=== PATIENT | male | born 1945 | race Caucasian/White ===

== ENCOUNTER 2017-05-28 15:38 | Emergency (ER) | payer MEDICARE, BC ==
[~2017-05-28] VITALS: Ht 182.9 cm; Wt 100.0 kg
[~2017-05-28 15:38] MED LIST: CARD2TAB PO; CEPH500C3 PO; DICL50 PO; HYDR-3533 PO; LIPI80TA16 PO; VIAG50TA PO
[2017-05-28 15:40] VITALS: BP 164/84; PULSE 78; RESP 18; TEMP 99.4; O2SAT 96
--- NOTE | 2017-05-28 15:52 | PD ---
Physical Exam Time Seen by Provider: 15:51 Narrative 72 y/o male with laceration to Left lower leg, slipped in the pool [employer] Vital signs reviewed. Seen at triage desk. Awaiting bed placement. Data Data Last Documented VS Vital Signs Date Time Temp Pulse Resp B/P Pulse Ox O2 Delivery O2 Flow Rate FiO2 05/28/17 15:40 99.4 78 18 164/84 96 Room Air MDM Medical Record Reviewed: Yes Supervised Visit with KLEVER: Rajesh Pierce May 28, 2017 15:52
[2017-05-28] MEDS ORDERED: LIDOCAINE HCL 1% 50 ML VIAL INFIL ONE (17:45)
[2017-05-28] MEDS ORDERED: CEPH-460 PO (18:07)
--- NOTE | 2017-05-28 18:09 | PD ---
HPI Chief Complaint: Skin Problem Time Seen by Provider: 18:06 Travel History International Travel<30 days: No Contact w/Intl Traveler<30days: No Traveled to known affect area: No History of Present Illness HPI 72-year-old male presents to the emergency department complaining of a laceration to his left maddox from today. He slipped on his pool ladder and cut his leg. Denies being up-to-date on his tetanus vaccination and also reports being allergic to the tetanus toxoid. Denies paresthesias, loss of sensation, decreased range of motion, decreased strength to the affected extremity. Has applied pressure to control bleeding. Bandage in place. Has not taken any medications to alleviate his symptoms. Has no other medical complaints. No other modifying factors or associated signs and symptoms. PFSH Past Medical History Cancer: Yes (STAGE 4 LYMPHOMA) Cardiovascular Problems: No High Cholesterol: Yes Chemotherapy: Yes (7 YEARS AGO) Diabetes: No Diminished Hearing: No Genitourinary: Yes (CHRONIC KIDNEY DISEASE; BPH) Hepatitis: No Hiatal Hernia: No Hypertension: Yes Medical other: Yes (BPH) Respiratory: No Thyroid Disease: No Past Surgical History Abdominal Surgery: Yes (PARTIAL SM. INTESTINE RESECTOMY, APPY) Appendectomy: Yes Oral Surgery: Yes (T & A) Pacemaker: No Tonsillectomy: Yes Other Surgery: Yes (lumbar fusion) Social History Alcohol Use: Yes (OCCASIONAL BEER) Tobacco Use: No (quit 17 yrs) Substance Use: No Allergies-Medications (Allergen,Severity, Reaction): Coded Allergies: Cellcept (Unverified Allergy, Severe, RASH, 06/27/16) Penicillin (Verified Allergy, Severe, Rash, 06/27/16) Tetanus Toxoid (Verified Allergy, Severe, Swelling, 06/27/16) Reported Meds & Prescriptions Reported Meds & Active Scripts Active Keflex (Cephalexin) 500 Mg Cap 500 Mg PO Q8H 7 Days Reported Cardura 2 mg (Doxazosin Mesylate) 2 Mg Tab 2 Mg PO HS Lipitor (Atorvastatin Calcium) 80 Mg Tab 40 Mg PO HS Review of Systems Except as stated in HPI: all other systems reviewed are Neg Physical Exam Narrative GENERAL: Well-nourished, well-developed elderly male patient, in no acute distress; afebrile, nontoxic-appearing SKIN: Warm and dry. Left mid maddox with approximately 6 cm laceration: Bleeding controlled; the left lower extremity with 2+ pedal pulses and sensory intact without erythema or edema. HEAD: Atraumatic. Normocephalic. EYES: Pupils equal and round. No scleral icterus. No injection or drainage. ENT: Mucosa pink and moist. Airway patent. NECK: Trachea midline. CARDIOVASCULAR: Regular rate. RESPIRATORY: No accessory muscle use. GASTROINTESTINAL: Rounded. MUSCULOSKELETAL: No obvious deformities. No clubbing. No cyanosis. No edema. NEUROLOGICAL: Awake and alert. Oriented 3. No obvious cranial nerve deficits. Motor grossly within normal limits. Normal speech. PSYCHIATRIC: Appropriate mood and affect; insight and judgment normal. Data Data Last Documented VS Vital Signs Date Time Temp Pulse Resp B/P Pulse Ox O2 Delivery O2 Flow Rate FiO2 05/28/17 15:40 99.4 78 18 164/84 96 Room Air Orders Lidocaine 1% Inj (Xylocaine 1% Inj) (05/28/17 18:15) Lidocaine Pf 1% Inj (Xylocaine-Mpf 1% In (05/28/17 18:14) MDM Medical Decision Making Medical Screen Exam Complete: Yes Emergency Medical Condition: Yes Medical Record Reviewed: Yes Differential Diagnosis Laceration, contusion, abrasion Narrative Course 72-year-old male with laceration to left mid maddox. See my procedure note for laceration repair. Patient is allergic to tetanus toxoid. Keflex prescribed for home. Injected patient to return to the emergency department or follow-up with primary care provider in 14-28 days for staple removal. Instructed patient to follow up with primary care provider. Patient verbalizes understanding and agreement with treatment plan. Patient is medically cleared and stable for discharge. Discussed reasons to return to the emergency department. Patient agrees with treatment plan. The patients vital signs are stable and the patient is stable for outpatient follow-up and treatment. Patient discharged home, stable and in no acute distress. Procedures Procedure Narrative LACERATION LOCATION: Left maddox LENGTH: 6 cm NUMBER OF STITCHES/MARY: 8 [place] REPAIR: The area of the laceration was prepped with Betadine and sterilely draped. The laceration was infiltrated with 1% lidocaine. The wound was copiously irrigated and explored without evidence of foreign body, tendon injury or neurovascular injury. The wound was closed using mary. This was a single layer repair. A sterile dressing was applied. The patient was advised to keep the dressing clean and dry. Patient tolerated the procedure well. Diagnosis Primary Impression: Laceration of left lower leg Qualified Code: S81.812A - Laceration of left lower leg, initial encounter Referrals: Primary Care Physician Patient Instructions: General Instructions, Laceration (ED), Staple Care (ED) Additional Instructions: Keep area clean and dry Limit left lower leg activity to decrease risk of mary coming undone done Tylenol as directed and as needed for pain and inflammation Ice pack to area as needed to decrease pain Return to the emergency department or follow-up with primary care provider in in 14-28 days for staple removal Follow up with primary care provider within 2-4 days Return to the emergency department immediately with worsening of symptoms, particularly if reddened streaks up or down the affected extremity from the staple site, fever, numbness/tingling in the affected extremity, loss of sensation in the affected extremity, severe swelling of the affected Med/Other Pt SpecificInfo: Prescription(s) given Scripts Cephalexin (Keflex)500 Mg [id number] Mg PO Q8H 7 Days Ref 0 Prov:Tracy Burr 05/28/17 Disposition: 01 DISCHARGE HOME Condition: Stable Tracy Burr May 28, 2017 18:09
[2017-05-28] MEDS ORDERED: LIDOCAINE HCL 1% PF 30 ML VIAL ONE (18:14)
[2017-05-28] MEDS ORDERED: LIDOCAINE HCL 1% 30 ML VIAL INFIL ONE (18:15)
== END 2017-05-28 18:51 | disposition home or self-care (01) ==
LOC: NEPK 15:38
DX: S81.812A Laceration without foreign body, left lower leg, initial encounter (principal); E78.00 Pure hypercholesterolemia, unspecified; I12.9 Hypertensive chronic kidney disease with stage 1 through stage 4 chronic kidney disease, or unspecified chronic kidney disease; N18.9 Chronic kidney disease, unspecified; N40.0 Benign prostatic hyperplasia without lower urinary tract symptoms; W45.8XXA Other foreign body or object entering through skin, initial encounter; Z85.72 Personal history of non-Hodgkin lymphomas; Z87.891 Personal history of nicotine dependence; Z79.899 Other long term (current) drug therapy
CPT/HCPCS: 12002